=== PATIENT | male | born 1995 | race Caucasian/White ===

== ENCOUNTER → 2020-05-01 15:16 | Outpatient (BNVA) | payer MEDICAID, SELFPAY | PROVIDERS: Family Provider Family Medicine; PCP Family Medicine; Visit Provider Family Medicine | DX: R00.0 Tachycardia, unspecified (principal); R07.9 Chest pain, unspecified; I10 Essential (primary) hypertension | CPT/HCPCS: 80053; 83735; 84443; 85025 ==

== ENCOUNTER → 2020-06-03 10:00 | Outpatient (BNVA) | payer MEDICAID, SELFPAY | PROVIDERS: Family Provider Family Medicine; PCP Family Medicine; Visit Provider Internal Medicine Cardiovascular Disease | DX: R00.2 Palpitations (principal) | CPT/HCPCS: 80053; 83735; 84443 ==

== ENCOUNTER → 2020-07-04 10:28 | Outpatient (BNVA) | payer MEDICAID, SELFPAY | PROVIDERS: Family Provider Family Medicine; PCP Family Medicine; Visit Provider Registered Nurse | DX: Z79.899 Other long term (current) drug therapy (principal); F25.1 Schizoaffective disorder, depressive type | CPT/HCPCS: 85007; 85027 ==

== ENCOUNTER → 2020-07-10 15:02 | Outpatient (BNVA) | payer MEDICAID, SELFPAY | PROVIDERS: Family Provider Family Medicine; PCP Family Medicine; Visit Provider Registered Nurse | DX: F25.1 Schizoaffective disorder, depressive type (principal); Z79.899 Other long term (current) drug therapy | CPT/HCPCS: 85007; 85027 ==

== ENCOUNTER → 2020-07-18 13:52 | Outpatient (BNVA) | payer MEDICAID, SELFPAY | PROVIDERS: Family Provider Family Medicine; PCP Family Medicine; Visit Provider Psychiatry & Neurology Psychiatry | DX: F25.1 Schizoaffective disorder, depressive type (principal); Z79.899 Other long term (current) drug therapy | CPT/HCPCS: 85007; 85027; 99214 ==

== ENCOUNTER → 2020-07-29 10:12 | Outpatient (BNVA) | payer MEDICAID, SELFPAY | PROVIDERS: Family Provider Family Medicine; PCP Family Medicine; Visit Provider Registered Nurse | DX: Z79.899 Other long term (current) drug therapy (principal) | CPT/HCPCS: 85007; 85027 ==

== ENCOUNTER → 2020-08-16 09:16 | Outpatient (BNVA) | payer MEDICAID, SELFPAY | PROVIDERS: Family Provider Family Medicine; PCP Family Medicine; Referring Provider Registered Nurse; Visit Provider Registered Nurse | DX: F25.1 Schizoaffective disorder, depressive type (principal) | CPT/HCPCS: 36415; 85025 ==

== ENCOUNTER → 2020-08-26 14:48 | Outpatient (BNVA) | payer MEDICAID, SELFPAY | PROVIDERS: Family Provider Family Medicine; PCP Family Medicine; Visit Provider Registered Nurse | DX: F25.1 Schizoaffective disorder, depressive type (principal) | CPT/HCPCS: 85025 ==

== ENCOUNTER → 2020-09-02 11:18 | Outpatient (BNVA) | payer MEDICAID, SELFPAY | PROVIDERS: Family Provider Family Medicine; PCP Family Medicine; Visit Provider Registered Nurse | DX: F25.1 Schizoaffective disorder, depressive type (principal); Z79.899 Other long term (current) drug therapy | CPT/HCPCS: 36415; 85025 ==

== ENCOUNTER → 2020-09-09 14:03 | Outpatient (BNVA) | payer MEDICAID, SELFPAY | PROVIDERS: Family Provider Family Medicine; PCP Family Medicine; Visit Provider Registered Nurse | DX: F25.1 Schizoaffective disorder, depressive type (principal); Z79.899 Other long term (current) drug therapy | CPT/HCPCS: 85025 ==

== ENCOUNTER → 2020-09-16 13:08 | Outpatient (BNVA) | payer MEDICAID, SELFPAY | PROVIDERS: Family Provider Family Medicine; PCP Family Medicine; Visit Provider Registered Nurse | DX: F25.1 Schizoaffective disorder, depressive type (principal); I10 Essential (primary) hypertension; R00.2 Palpitations | CPT/HCPCS: 85025 ==

== ENCOUNTER → 2020-09-23 15:09 | Outpatient (BNVA) | payer MEDICAID, SELFPAY | PROVIDERS: Family Provider Family Medicine; PCP Family Medicine; Visit Provider Registered Nurse | DX: Z79.899 Other long term (current) drug therapy (principal) | CPT/HCPCS: 36415; 85025 ==

== ENCOUNTER → 2020-09-30 10:14 | Outpatient (BNVA) | payer MEDICAID, SELFPAY | PROVIDERS: Family Provider Family Medicine; PCP Family Medicine; Referring Provider Registered Nurse; Visit Provider Registered Nurse | DX: F25.1 Schizoaffective disorder, depressive type (principal) | CPT/HCPCS: 85025 ==

== ENCOUNTER → 2020-10-07 15:27 | Outpatient (BNVA) | payer MEDICAID, SELFPAY | PROVIDERS: Family Provider Family Medicine; PCP Family Medicine; Visit Provider Registered Nurse | DX: F25.1 Schizoaffective disorder, depressive type (principal) | CPT/HCPCS: 36415; 85025 ==

== ENCOUNTER → 2020-10-14 10:24 | Outpatient (BNVA) | payer MEDICAID, SELFPAY | PROVIDERS: Family Provider Family Medicine; PCP Family Medicine; Visit Provider Family Medicine | DX: I10 Essential (primary) hypertension (principal); M25.569 Pain in unspecified knee; Z79.899 Other long term (current) drug therapy; F25.1 Schizoaffective disorder, depressive type; M25.561 Pain in right knee; M25.562 Pain in left knee; G89.29 Other chronic pain; R00.2 Palpitations; Z13.220 Encounter for screening for lipoid disorders; Z13.6 Encounter for screening for cardiovascular disorders | CPT/HCPCS: 80053; 80061; 85025 ==

== ENCOUNTER → 2020-11-11 11:13 | Outpatient (BNVA) | payer MEDICAID, SELFPAY | PROVIDERS: Family Provider Family Medicine; PCP Family Medicine; Referring Provider Registered Nurse; Visit Provider Registered Nurse | DX: F25.1 Schizoaffective disorder, depressive type (principal); I10 Essential (primary) hypertension; Z79.899 Other long term (current) drug therapy | CPT/HCPCS: 36415; 85025 ==

== ENCOUNTER → 2020-11-25 10:16 | Outpatient (BNVA) | payer MEDICAID, SELFPAY | PROVIDERS: Family Provider Family Medicine; PCP Family Medicine; Referring Provider Registered Nurse; Visit Provider Registered Nurse | DX: F25.1 Schizoaffective disorder, depressive type (principal); I10 Essential (primary) hypertension; Z79.899 Other long term (current) drug therapy; R00.2 Palpitations | CPT/HCPCS: 85025 ==

== ENCOUNTER → 2020-12-02 13:42 | Outpatient (BNVA) | payer MEDICAID, SELFPAY | PROVIDERS: Family Provider Family Medicine; PCP Family Medicine; Referring Provider Registered Nurse; Visit Provider Registered Nurse | DX: F25.1 Schizoaffective disorder, depressive type (principal); Z79.899 Other long term (current) drug therapy | CPT/HCPCS: 85025 ==

== ENCOUNTER → 2020-12-09 10:20 | Outpatient (BNVA) | payer MEDICAID, SELFPAY | PROVIDERS: Family Provider Family Medicine; PCP Family Medicine; Referring Provider Registered Nurse; Visit Provider Registered Nurse | DX: F25.1 Schizoaffective disorder, depressive type (principal); Z79.899 Other long term (current) drug therapy | CPT/HCPCS: 36415; 85025 ==

== ENCOUNTER → 2020-12-31 12:44 | Outpatient (BNVA) | payer MEDICAID, SELFPAY | PROVIDERS: Family Provider Family Medicine; PCP Family Medicine; Referring Provider Registered Nurse; Visit Provider Registered Nurse | DX: Z79.899 Other long term (current) drug therapy (principal); F25.1 Schizoaffective disorder, depressive type | CPT/HCPCS: 36415; 85025 ==

== ENCOUNTER → 2021-01-06 10:42 | Outpatient (BNVA) | payer MEDICAID, SELFPAY | PROVIDERS: Family Provider Family Medicine; PCP Family Medicine; Referring Provider Registered Nurse; Visit Provider Registered Nurse | DX: Z79.899 Other long term (current) drug therapy (principal); I10 Essential (primary) hypertension; F25.1 Schizoaffective disorder, depressive type | CPT/HCPCS: 36415; 85025 ==

== ENCOUNTER → 2021-01-13 13:48 | Outpatient (BNVA) | payer MEDICAID, SELFPAY | PROVIDERS: Family Provider Family Medicine; PCP Family Medicine; Visit Provider Registered Nurse | DX: Z03.89 Encounter for observation for other suspected diseases and conditions ruled out (principal) | CPT/HCPCS: 36415; 85025 ==

== ENCOUNTER → 2021-01-29 10:18 | Outpatient (BNVA) | payer MEDICAID, SELFPAY | PROVIDERS: Family Provider Family Medicine; PCP Family Medicine; Visit Provider Registered Nurse | DX: F25.1 Schizoaffective disorder, depressive type (principal); Z79.899 Other long term (current) drug therapy | CPT/HCPCS: 36415; 85025 ==

== ENCOUNTER → 2021-02-06 14:57 | Outpatient (BNVA) | payer MEDICAID, SELFPAY | PROVIDERS: Family Provider Family Medicine; PCP Family Medicine; Visit Provider Registered Nurse | DX: Z03.89 Encounter for observation for other suspected diseases and conditions ruled out (principal); I10 Essential (primary) hypertension; K21.9 Gastro-esophageal reflux disease without esophagitis | CPT/HCPCS: 82306; 82607; 82746; 83540 ==

== ENCOUNTER → 2021-02-19 11:03 | Outpatient (BNVA) | payer MEDICAID, SELFPAY | PROVIDERS: Family Provider Family Medicine; PCP Family Medicine; Visit Provider Registered Nurse | DX: Z79.899 Other long term (current) drug therapy (principal) | CPT/HCPCS: 36415; 85025 ==

== ENCOUNTER → 2021-02-24 13:25 | Outpatient (BNVA) | payer MEDICAID, SELFPAY | PROVIDERS: Family Provider Family Medicine; PCP Family Medicine; Referring Provider Registered Nurse; Visit Provider Registered Nurse | DX: Z79.899 Other long term (current) drug therapy (principal) | CPT/HCPCS: 36415; 85025 ==

== ENCOUNTER → 2021-03-03 10:33 | Outpatient (BNVA) | payer MEDICAID, SELFPAY | PROVIDERS: Family Provider Family Medicine; PCP Family Medicine; Referring Provider Registered Nurse; Visit Provider Registered Nurse | DX: Z79.899 Other long term (current) drug therapy (principal) | CPT/HCPCS: 36415; 85025 ==

== ENCOUNTER → 2021-04-02 12:01 | Outpatient (BNVA) | payer MEDICAID, SELFPAY | PROVIDERS: Family Provider Family Medicine; PCP Family Medicine; Visit Provider Registered Nurse | DX: Z79.899 Other long term (current) drug therapy (principal) | CPT/HCPCS: 36415; 85025 ==

== ENCOUNTER → 2021-04-17 11:20 | Outpatient (BNVA) | payer MEDICAID, SELFPAY | PROVIDERS: Family Provider Family Medicine; PCP Family Medicine; Referring Provider Registered Nurse; Visit Provider Registered Nurse | DX: F25.1 Schizoaffective disorder, depressive type (principal); Z79.899 Other long term (current) drug therapy | CPT/HCPCS: 36415; 85025 ==

== ENCOUNTER → 2021-04-21 16:31 | Outpatient (BNVA) | payer MEDICAID, SELFPAY | PROVIDERS: Family Provider Family Medicine; PCP Family Medicine; Visit Provider Family Medicine | DX: F25.1 Schizoaffective disorder, depressive type (principal); K04.7 Periapical abscess without sinus; R35.0 Frequency of micturition; D72.825 Bandemia; K59.00 Constipation, unspecified; Z79.899 Other long term (current) drug therapy | CPT/HCPCS: 81000; 85025 ==

== ENCOUNTER → 2021-05-16 11:25 | Outpatient (BNVA) | payer MEDICAID, SELFPAY | PROVIDERS: Family Provider Family Medicine; PCP Family Medicine; Referring Provider Registered Nurse; Visit Provider Registered Nurse | DX: F25.1 Schizoaffective disorder, depressive type (principal); Z79.899 Other long term (current) drug therapy | CPT/HCPCS: 85025 ==

== ENCOUNTER → 2021-06-19 12:04 | Outpatient (BNVA) | payer MEDICAID, SELFPAY | PROVIDERS: Family Provider Family Medicine; PCP Family Medicine; Visit Provider Orthopaedic Surgery Sports Medicine | DX: Z79.899 Other long term (current) drug therapy (principal) | CPT/HCPCS: 36415; 85025 ==

== ENCOUNTER → 2021-06-25 12:01 | Outpatient (BNVA) | payer MEDICAID, SELFPAY | PROVIDERS: Family Provider Family Medicine; PCP Family Medicine; Visit Provider Registered Nurse | DX: Z79.899 Other long term (current) drug therapy (principal) | CPT/HCPCS: 36415 ==

== ENCOUNTER → 2021-07-16 13:45 | Outpatient (BNVA) | payer MEDICAID, SELFPAY | PROVIDERS: Family Provider Family Medicine; PCP Family Medicine; Visit Provider Registered Nurse | DX: Z79.899 Other long term (current) drug therapy (principal) | CPT/HCPCS: 36415; 80053; 80061; 85025 ==

== ENCOUNTER → 2021-08-13 13:05 | Outpatient (BNVA) | payer MEDICAID, SELFPAY | PROVIDERS: Family Provider Family Medicine; PCP Family Medicine; Visit Provider Registered Nurse | DX: Z79.899 Other long term (current) drug therapy (principal) | CPT/HCPCS: 36415; 85025 ==

== ENCOUNTER → 2021-09-17 14:56 | Outpatient (BNVA) | payer MEDICAID, SELFPAY | PROVIDERS: Family Provider Family Medicine; PCP Family Medicine; Visit Provider Registered Nurse | DX: Z79.899 Other long term (current) drug therapy (principal) | CPT/HCPCS: 36415; 85025 ==

== ENCOUNTER → 2021-10-13 15:15 | Outpatient (BNVA) | payer MEDICAID, SELFPAY | PROVIDERS: Family Provider Family Medicine; PCP Family Medicine; Visit Provider Registered Nurse | DX: Z79.899 Other long term (current) drug therapy (principal) | CPT/HCPCS: 36415; 85025 ==

== ENCOUNTER → 2021-11-10 14:47 | Outpatient (BNVA) | payer MEDICAID, SELFPAY | PROVIDERS: Family Provider Family Medicine; PCP Family Medicine; Visit Provider Registered Nurse | DX: Z79.899 Other long term (current) drug therapy (principal) | CPT/HCPCS: 85025 ==

== ENCOUNTER → 2021-12-18 11:28 | Outpatient (BNVA) | payer MEDICAID, SELFPAY | PROVIDERS: Family Provider Family Medicine; PCP Family Medicine; Visit Provider Registered Nurse | DX: Z79.899 Other long term (current) drug therapy (principal) | CPT/HCPCS: 85025 ==

== ENCOUNTER → 2022-01-05 15:15 | Outpatient (BNVA) | payer MEDICAID, SELFPAY | PROVIDERS: Family Provider Family Medicine; PCP Family Medicine; Visit Provider Registered Nurse | DX: Z79.899 Other long term (current) drug therapy (principal) | CPT/HCPCS: 85025 ==

== ENCOUNTER → 2022-02-02 14:19 | Outpatient (BNVA) | payer MEDICAID, SELFPAY | PROVIDERS: Family Provider Family Medicine; PCP Family Medicine; Visit Provider Registered Nurse | DX: Z79.899 Other long term (current) drug therapy (principal) | CPT/HCPCS: 80053; 80061; 82306; 83036; 84443; 85025 ==

== ENCOUNTER → 2022-03-23 10:48 | Outpatient (BNVA) | payer MEDICAID, SELFPAY | PROVIDERS: Family Provider Family Medicine; PCP Family Medicine; Visit Provider Registered Nurse | DX: Z79.899 Other long term (current) drug therapy (principal) | CPT/HCPCS: 85025 ==

== ENCOUNTER → 2022-05-21 12:30 | Outpatient (BNVA) | payer MEDICAID, SELFPAY | PROVIDERS: Family Provider Family Medicine; PCP Family Medicine; Visit Provider Registered Nurse | DX: Z79.899 Other long term (current) drug therapy (principal) | CPT/HCPCS: 85025 ==

== ENCOUNTER → 2022-07-08 13:27 | Outpatient (BNVA) | payer MEDICAID, SELFPAY | PROVIDERS: Family Provider Family Medicine; PCP Family Medicine; Visit Provider Registered Nurse | DX: Z79.899 Other long term (current) drug therapy (principal) | CPT/HCPCS: 85025 ==

== ENCOUNTER → 2022-08-05 14:11 | Outpatient (BNVA) | payer MEDICAID, SELFPAY | PROVIDERS: Family Provider Family Medicine; PCP Family Medicine; Visit Provider Registered Nurse | DX: F25.1 Schizoaffective disorder, depressive type (principal) | CPT/HCPCS: 85025 ==

== ENCOUNTER → 2022-09-02 14:08 | Outpatient (BNVA) | payer MEDICAID, SELFPAY | PROVIDERS: Family Provider Family Medicine; PCP Family Medicine; Visit Provider Registered Nurse | DX: Z79.899 Other long term (current) drug therapy (principal) | CPT/HCPCS: 80048; 85025 ==

== ENCOUNTER → 2022-10-15 15:04 | Outpatient (BNVA) | payer MEDICAID, SELFPAY | PROVIDERS: Family Provider Family Medicine; PCP Family Medicine; Visit Provider Registered Nurse | DX: Z79.899 Other long term (current) drug therapy (principal) | CPT/HCPCS: 85025 ==

== ENCOUNTER → 2022-11-12 13:58 | Outpatient (BNVA) | payer MEDICAID, SELFPAY | PROVIDERS: Family Provider Family Medicine; PCP Family Medicine; Visit Provider Registered Nurse | DX: Z79.899 Other long term (current) drug therapy (principal) | CPT/HCPCS: 85025 ==

== ENCOUNTER → 2022-12-31 09:18 | Outpatient (BNVA) | payer MEDICAID, SELFPAY | PROVIDERS: Family Provider Family Medicine; PCP Family Medicine; Visit Provider Registered Nurse | DX: Z79.899 Other long term (current) drug therapy (principal) | CPT/HCPCS: 80053; 80061; 82306; 83036; 85025 ==

== ENCOUNTER 2023-03-23 11:44 | Emergency (ER) | payer MEDICAID, SELFPAY ==
[2023-03-23 12:30] VITALS: BP 130/86; PULSE 78; RESP 18; TEMP 36.6; O2SAT 93
--- NOTE | 2023-03-23 12:32 | ED_ITS ---
HPI - Dental/Oral General: Chief complaint: Skin/Abscess/Foreign Body Stated complaint: tooth abscess Time Seen by Provider: 03/23/23 12:16 Source: patient Mode of arrival: ambulatory Limitations: no limitations History of Present Illness: Patient is a 27-year-old male who presents to ED today with a complaint of right-sided facial swelling and dental pain over the past several weeks. Patient states he has been on multiple rounds of antibiotics and nothing seems to be helping with his facial swelling. He has called multiple dentists none of which are able to see him for several months. Patient is able to eat, drink, swallow secretions, and open his mouth normally. Onset (ago): week(s) Duration: constant Severity: moderate Relieving factors: nothing Exacerbating factors: nothing Context: poor dental care Associated symptoms: Reports other (Facial swelling); Denies ear or mastoid pain, fever(s) or odynophagia Treatment prior to arrival: other (Multiple rounds of antibiotics) Review of Systems Const: Denies: fever(s), chills, body aches, fatigue or malaise ENMT: Reports: dental pain and sinus pain (Right-sided facial swelling); Denies: throat pain, odynophagia, swelling of lips/tongue, ear or mastoid pain, nasal discharge, nasal congestion or post nasal drip Card: Denies: chest pain Resp: Denies: dyspnea Musc: Denies: neck pain Skin/Breast: Denies: rash Neuro: Denies: headache(s) or dizziness PFS ED PFSH: Medical History Generalized anxiety disorder GERD (gastroesophageal reflux disease) Hypertension Psychiatric care Schizoaffective disorder, depressive type Family History Other CAD (coronary artery disease) Myocardial infarction Social History Smoking and tobacco status: never smoked Alcohol intake: never Substance/Drug Use: never Physical Exam Const: COMMON NORMALS: no acute distress, average body habitus, patient orie nted x3, no limitations, alert and well nourished GENERAL APPEARANCE: patient experience coordinator perative ORIENTATION/CONSCIOUSNESS: Yes awake, Yes oriented to person, Yes oriented to place and Yes oriented to time HENMT: COMMON NORMALS: normocephalic and atraumatic HEAD & SCALP: normal to inspection, normocephalic and atraumatic FACE & SINUS: sinuses nontender FACE & SINUS IMAGES: 1. Facial swelling consistent with dental abscess; there is no swelling below mandible or into his neck; no submental swelling MOUTH: Normal oral and palatal mucosa present, lip normal, tongue normal and other (Floor of mouth is soft and nonelevated; no trismus) TEETH & GINGIVA: Yes caries, Yes poor dentition and Yes other (Significant widespread periodontal disease) THROAT: posterior oropharynx normal, tonsils normal and uvula midline Neck/C-Spine: COMMON NORMALS: full ROM, no lymphadenopathy and no meningeal signs GENERAL: Yes normal visual inspection, No anterior neck swelling and No submandibular swelling Neuro: COMMON NORMALS: patient oriented x3 SENSORIUM/ORIENTATION: Yes alert, Yes oriented to person, Yes oriented to place and Yes oriented to time MENINGEAL SIGNS: Yes no meningeal signs Course Consultations: Consultation #1: Dr. Mahoney-recommending contacting [facility] in [place] or [place]; mentioned a [facility] through [employer] that potentially could see patient Consultation #2: [facility]-stated they would call patient today and set him up with an appointment for treatment/drainage Vital Signs: Vital signs: Vital Signs Temperature 97.9 F 03/23/23 12:30 Pulse Rate 78 03/23/23 12:30 Respiratory Rate 18 03/23/23 12:30 Blood Pressure 130/86 03/23/23 12:30 Pulse Oximetry 93 03/23/23 12:30 Oxygen Delivery Me thod Room Air 03/23/23 12:30 MDM - Dental/Oral Medical Decision Making Patient here with a dental abscess. I contacted [facility] who is willing to see ross joyner. They will contact him later today for appointment date and time. Return to ED precautions given if for what ever reason he is not able to follow-up with them. Will continue him on oral antibiotics until this appointment. Lab Data 03/23/23 12:47 03/23/23 12:[address] 03/23/23 12:32 IMPRESSION: 1. Subperiosteal abscess measures 2.6 x 0.8 cm on the medial RIGHT mandibular body. There is an additional contiguous, acute inflammatory collection extending inferior and lateral to the RIGHT mandibular body measuring 1.3 x 2.0 cm. 2. No bone destruction or osteomyelitis. 3. Extensive bilateral dental caries. Laboratory Results WBC 6.3 10^3/uL (4.0-10.0) 03/23/23 12:47 RBC 4.66 10^6/uL (4.1-5.3) 03/23/23 12:47 Hgb 13.9 g/dL (11.7-16.6) 03/23/23 12:47 Hct 41.1 % (42.0-52.0) L 03/23/23 12:47 MCV 88.2 fl (80-94) 03/23/23 12:47 MCH 29.8 pg (28.0-34.0) 03/23/23 12:47 MCHC 33.8 g/dL (30.0-36.0) 03/23/23 12:47 RDW 12.0 % (12.1-15.1) L 03/23/23 12:47 Plt Count 181 10^3/cmm (130-400) 03/23/23 12:47 MPV 10.2 fL (7.4-10.4) 03/23/23 12:47 Neut % (Auto) 67.1 % 03/23/23 12:47 Lymph % (Auto) 19.6 % 03/23/23 12:47 [place] % (Auto) 9.1 % 03/23/23 12:47 Eos % (Auto) 3.4 % 03/23/23 12:47 Baso % (Auto) 0.6 % 03/23/23 12:47 Neut # (Auto) 4.20 10^3/uL (1.8-7.7) 03/23/23 12:47 Lymph # (Auto) 1.2 10^3/uL (0.8-4.8) 03/23/23 12:47 [place] # (Auto) 0.6 10^3/uL (0.2-0.9) 03/23/23 12:47 Eos # (Auto) 0.2 10^3/uL (0.0-0.8) 03/23/23 12:47 Baso # (Auto) 0.0 10^3/uL (0.0-0.1) 03/23/23 12:47 Nucleated RBC % (auto) 0 % 03/23/23 12:47 Nucleated RBCs # 0.0 /100WBC 03/23/23 12:47 Sodium 138 mmol/L (136-145) 03/23/23 12:47 Potassium 3.8 mmol/L (3.5-5.1) 03/23/23 12:47 Chloride 103 mmol/L (98-107) 03/23/23 12:47 Carbon Dioxide 25 mmol/L (22-29) 03/23/23 12:47 Anion Gap 13.8 (5-19) 03/23/23 12:47 BUN 8 mg/dL (6-20) 03/23/23 12:47 Creatinine 1.0 mg/dL (0.7-1.2) 03/23/23 12:47 GFR Calculation 89.6 mL/min (90-130) L 03/23/23 12:47 Glucose 101 mg/dL (65-115) 03/23/23 12:47 Calculated Osmolality 284 mOsm/kg (285-295) L 03/23/23 12:47 Calcium 9.2 mg/dL (8.5-10.5) 03/23/23 12:47 Total Bilirubin 0.5 mg/dL (0.15-1.2) 03/23/23 12:47 AST 24 U/L (0-40) 03/23/23 12:47 ALT 29 U/L (0-41) 03/23/23 12:47 Alkaline Phosphatase 107 U/L (40-130) 03/23/23 12:47 Total Protein 7.0 g/dL (6.6-8.7) 03/23/23 12:47 Albumin 4.3 g/dL (3.5-5.2) 03/23/23 12:47 Globulin 2.7 g/dL (1.3-4.6) 03/23/23 12:47 Discharge Plan Discharge Patient Disposition: Home Clinical Impression: Dental abscess Condition: Stable Prescriptions: Continued amoxicillin-pot clavulanate 875-125 mg tablet 1 tab PO Q12H 7 Days Qty: 20 0RF No Action omega-3 fatty acids [Fish Oil Concentrate] 1,000 mg capsule 1,000 mg PO DAILY 30 Days Qty: 30 5RF Rx Instructions: with food cholecalciferol (vitamin D3) [D3-50 Cholecalciferol] 1,250 mcg (50,000 unit) capsule 1,250 mcg PO .weekly 90 Days Qty: 13 1RF fluoxetine 40 mg capsule 80 mg PO DAILY Qty: 60 2RF clozapine 100 mg tablet 300 mg PO .at bedtime 28 Days Qty: 84 3RF omeprazole 20 mg capsule,delayed release(DR/EC) 20 mg PO DAILY 90 Days Qty: 90 1RF metoprolol tartrate 100 mg tablet 100 mg PO BID 90 Days Qty: 180 1RF meloxicam 15 mg tablet 15 mg PO DAILY PRN (Reason: pain) 90 Days Qty: 90 1RF Rx Instructions: WITH FOOD cetirizine [Zyrtec] 10 mg tablet 10 mg PO DAILY 90 Days Qty: 90 1RF Rx Instructions: 340B Discharge Orders: Discharge ED (Routine); Ordered 03/23/23 Ordered By: Antonia Carlos Referrals: Blanca Armendariz MD [Primary Care Provider] - Patient Instructions: Dental Abscess (ED) Activity Restrictions/Additional Instructions: As we discussed OMFS (oral maxillary facial surgery) Frank should be contacting you today or tomorrow to set you up with an appointment date and time to be seen for drainage abscess. Please bring your CT disc and report with you to this appointment. If for what ever reason you are not able to follow-up with them and abscess continues to worsen and you are not able to see a dentist or other specialty for drainage you may return to the emergency department. You need to return to the emergency department sooner for any difficulty swallowing, breathing, controlling saliva, opening your mouth, fevers, or any other concerns you may have. I hope you begin to feel better soon. Coding Level of Care Code ED Sales Agent for Marlin Mena
--- NOTE | 2023-03-23 12:32 | CT_ITS ---
WS: [id number] CT FACIAL BONES with contrast. HISTORY: R sided facial swelling TECHNIQUE: Images obtained from the supraorbital location through the mandible. Soft tissue and bone windows are reviewed. Coronal and sagittal reformats have also been submitted. DLP: 669.[address] scans at [facility] use at least one of these dose optimization techniques: automated e xposure control; mA and/or kV adjustment per patient size (includes targeted exams where dose is matc hed to clinical indication); or iterative reconstruction. Contrast: Omnipaque 350; 100 mL IV. COMPARISON: None available. Focal soft tissue thickening and enhancement centered around the RIGHT mandibular body. Subperiosteal abscess measures 2.6 x 0.8 cm along the medial mandibular body. There is a additional inflammatory c omponent with enhancement extending inferior lateral to the mandibular body measuring 1.3 x 2.0 cm. T here is adjacent dental caries involving several of the molars both the RIGHT and LEFT mandible. No d estructive lesion within the bone. Marked induration in the periventricular soft tissue fat with a few adjacent hyperemic lymph nodes. Globes are negative. No significant sinus disease or air-fluid levels. Small mucoperiosteal cysts in the maxillary sinuses. CT/CT facial bones w con [id number] IMPRESSION: 1. Subperiosteal abscess measures 2.6 x 0.8 cm on the medial RIGHT mandibular body. There is an additional contiguous, acute inflammatory collection extendin g inferior and lateral to the RIGHT mandibular body measuring 1.3 x 2.0 cm. 2. No bone destruction or osteomyelitis. 3. Extensive bilateral dental caries.
[2023-03-23 12:56] LABS: Basophils % 0.6 %; Eosinophils # 0.2 10^3/uL (0.0-0.8); Eosinophils % 3.4 %; Hematocrit 41.1 % (42.0-52.0); Hemoglobin 13.9 g/dL (11.7-16.6); Lymphocytes # 1.2 10^3/uL (0.8-4.8); Lymphocytes % 19.6 %; Mean Corpuscular HGB Conc 33.8 g/dL (30.0-36.0); Mean Corpuscular Hemoglobin 29.8 pg (28.0-34.0); Mean Corpuscular Volume 88.2 fl (80-94); Mean Platelet Volume 10.2 fL (7.4-10.4); Monocytes # 0.6 10^3/uL (0.2-0.9); Monocytes % 9.1 %; Neutrophils % 67.1 %; Nucleated Red Blood Cells % 0 %; Platelet Count 181 10^3/cmm (130-400); Red Blood Count 4.66 10^6/uL (4.1-5.3); White Blood Count 6.3 10^3/uL (4.0-10.0)
[2023-03-23] MEDS: iohexol 350 mg/mL 500 mL Btl (per mL) IV (13:06)
[2023-03-23 13:18] LABS: Alanine Aminotransferase 29 U/L (0-41); Albumin Level 4.3 g/dL (3.5-5.2); Alkaline Phosphatase 107 U/L (40-130); Anion Gap 13.8 (5-19); Aspartate Amino Transferase 24 U/L (0-40); Blood Urea Nitrogen 8 mg/dL (6-20); Calcium 9.2 mg/dL (8.5-10.5); Carbon Dioxide 25 mmol/L (22-29); Chloride 103 mmol/L (98-107); Globulin 2.7 g/dL (1.3-4.6); Glomerular Filtration Rate 89.6 mL/min (90-130); Glucose 101 mg/dL (65-115); Osmolality Calculated 284 mOsm/kg (285-295); Potassium 3.8 mmol/L (3.5-5.1); Sodium 138 mmol/L (136-145); Total Bilirubin 0.5 mg/dL (0.15-1.2)
== END 2023-03-23 15:09 | disposition home or self-care (01) ==
PROVIDERS: Emergency Provider Physician Assistant; PCP Family Medicine
DX: K04.7 Periapical abscess without sinus (principal); I10 Essential (primary) hypertension
CPT/HCPCS: 70487; 80053; 85025; 99285; Q9967

== ENCOUNTER → 2023-04-23 09:09 | Outpatient (BNVA) | payer MEDICAID, SELFPAY | PROVIDERS: PCP Family Medicine; Visit Provider Registered Nurse | DX: F25.1 Schizoaffective disorder, depressive type (principal); F41.1 Generalized anxiety disorder | CPT/HCPCS: 85025 ==

== ENCOUNTER → 2023-05-21 12:17 | Outpatient (BNVA) | payer MEDICAID, SELFPAY | PROVIDERS: PCP Family Medicine; Visit Provider Registered Nurse | DX: Z79.899 Other long term (current) drug therapy (principal) | CPT/HCPCS: 85025 ==

== ENCOUNTER → 2023-06-24 14:56 | Outpatient (BNVA) | payer MEDICAID, SELFPAY | PROVIDERS: PCP Family Medicine; Visit Provider Registered Nurse | DX: Z79.899 Other long term (current) drug therapy (principal) | CPT/HCPCS: 85025 ==

== ENCOUNTER → 2023-07-22 13:06 | Outpatient (BNVA) | payer MEDICAID, SELFPAY | PROVIDERS: PCP Family Medicine; Visit Provider Registered Nurse | DX: F25.1 Schizoaffective disorder, depressive type (principal) | CPT/HCPCS: 85025 ==

== ENCOUNTER → 2023-08-31 11:56 | Outpatient (BNVA) | payer MEDICAID, SELFPAY | PROVIDERS: PCP Family Medicine; Visit Provider Registered Nurse | DX: Z79.899 Other long term (current) drug therapy (principal) | CPT/HCPCS: 85025 ==

== ENCOUNTER → 2023-09-28 15:27 | Outpatient (BNVA) | payer MEDICAID, SELFPAY | PROVIDERS: PCP Family Medicine; Visit Provider Psychiatry & Neurology Psychiatry | DX: F25.1 Schizoaffective disorder, depressive type (principal) | CPT/HCPCS: 85025 ==

== ENCOUNTER → 2023-10-27 12:59 | Outpatient (BNVA) | payer MEDICAID, SELFPAY | PROVIDERS: PCP Family Medicine; Visit Provider Psychiatry & Neurology Psychiatry | DX: Z79.899 Other long term (current) drug therapy (principal); F25.1 Schizoaffective disorder, depressive type; F40.10 Social phobia, unspecified; R41.9 Unspecified symptoms and signs involving cognitive functions and awareness; Z91.148 Patient's other noncompliance with medication regimen for other reason; F41.1 Generalized anxiety disorder | CPT/HCPCS: 85025 ==

== ENCOUNTER → 2023-12-02 13:10 | Outpatient (BNVA) | payer MEDICAID, SELFPAY ==
[2023-11-02 15:31] VITALS: BP 137/87; BMI 33.5
== END ==
PROVIDERS: PCP Family Medicine; Visit Provider Psychiatry & Neurology Psychiatry
DX: F25.1 Schizoaffective disorder, depressive type (principal); Z79.899 Other long term (current) drug therapy; F40.10 Social phobia, unspecified; R41.9 Unspecified symptoms and signs involving cognitive functions and awareness; Z91.148 Patient's other noncompliance with medication regimen for other reason; F41.1 Generalized anxiety disorder
CPT/HCPCS: 85025

== ENCOUNTER → 2023-12-30 12:04 | Outpatient (BNVA) | payer MEDICAID, SELFPAY ==
[2023-11-02 15:31] VITALS: BP 137/87; BMI 33.5
== END ==
PROVIDERS: PCP Family Medicine; Visit Provider Psychiatry & Neurology Psychiatry
DX: Z79.899 Other long term (current) drug therapy (principal)
CPT/HCPCS: 85025

== ENCOUNTER → 2024-01-31 10:45 | Outpatient (BNVA) | payer MEDICAID, SELFPAY ==
[2023-11-02 15:31] VITALS: BP 137/87; BMI 33.5
== END ==
PROVIDERS: PCP Family Medicine; Referring Provider Psychiatry & Neurology Psychiatry; Visit Provider Psychiatry & Neurology Psychiatry
DX: Z79.899 Other long term (current) drug therapy (principal)
CPT/HCPCS: 85025

== ENCOUNTER → 2024-02-28 12:58 | Outpatient (BNVA) | payer MEDICAID, SELFPAY ==
[2023-11-02 15:31] VITALS: BP 137/87; BMI 33.5
== END ==
PROVIDERS: PCP Family Medicine; Referring Provider Psychiatry & Neurology Psychiatry; Visit Provider Psychiatry & Neurology Psychiatry
DX: Z79.899 Other long term (current) drug therapy (principal); Z51.81 Encounter for therapeutic drug level monitoring; F25.1 Schizoaffective disorder, depressive type; I10 Essential (primary) hypertension; Z13.1 Encounter for screening for diabetes mellitus; Z13.220 Encounter for screening for lipoid disorders; Z13.6 Encounter for screening for cardiovascular disorders
CPT/HCPCS: 80053; 80061; 83036; 84443; 85025

== ENCOUNTER → 2024-03-31 08:41 | Outpatient (BNVA) | payer MEDICAID, SELFPAY ==
[2024-03-01 11:04] VITALS: BP 125/80; BMI 31.1
== END ==
PROVIDERS: PCP Family Medicine; Referring Provider Psychiatry & Neurology Psychiatry; Visit Provider Psychiatry & Neurology Psychiatry
DX: Z79.899 Other long term (current) drug therapy (principal)
CPT/HCPCS: 85025

== ENCOUNTER → 2024-05-05 08:48 | Outpatient (BNVA) | payer MEDICAID, SELFPAY ==
[2024-03-01 11:04] VITALS: BP 125/80; BMI 31.1
== END ==
PROVIDERS: PCP Family Medicine; Visit Provider Psychiatry & Neurology Psychiatry
DX: Z79.899 Other long term (current) drug therapy (principal); F25.1 Schizoaffective disorder, depressive type; F40.10 Social phobia, unspecified; R41.9 Unspecified symptoms and signs involving cognitive functions and awareness; Z91.148 Patient's other noncompliance with medication regimen for other reason; F41.1 Generalized anxiety disorder
CPT/HCPCS: 85025

== ENCOUNTER → 2024-05-18 14:20 | Outpatient (BNVA) | payer MEDICAID, SELFPAY ==
[2024-03-01 11:04] VITALS: BP 125/80; BMI 31.1
== END ==
PROVIDERS: PCP Family Medicine; Referring Provider Psychiatry & Neurology Psychiatry; Visit Provider Psychiatry & Neurology Psychiatry
DX: Z79.899 Other long term (current) drug therapy (principal)
CPT/HCPCS: 85025

== ENCOUNTER → 2024-05-26 08:41 | Outpatient (BNVA) | payer MEDICAID, SELFPAY ==
[2024-03-01 11:04] VITALS: BP 125/80; BMI 31.1
== END ==
PROVIDERS: PCP Family Medicine; Visit Provider Psychiatry & Neurology Psychiatry
DX: Z79.899 Other long term (current) drug therapy (principal)
CPT/HCPCS: 85025

== ENCOUNTER → 2024-07-03 14:05 | Outpatient (BNVA) | payer OTHER, SELFPAY ==
[2024-03-01 11:04] VITALS: BP 125/80; BMI 31.1
== END ==
PROVIDERS: PCP Family Medicine; Referring Provider Psychiatry & Neurology Psychiatry; Visit Provider Psychiatry & Neurology Psychiatry
DX: Z79.899 Other long term (current) drug therapy (principal)
CPT/HCPCS: 85025

== ENCOUNTER → 2024-08-01 12:57 | Outpatient (BNVA) | payer MEDICAID, SELFPAY ==
[2024-03-01 11:04] VITALS: BP 125/80; BMI 31.1
== END ==
PROVIDERS: PCP Family Medicine; Visit Provider Psychiatry & Neurology Psychiatry
DX: Z79.899 Other long term (current) drug therapy (principal)
CPT/HCPCS: 85025

== ENCOUNTER → 2024-08-28 12:44 | Outpatient (BNVA) | payer MEDICAID, SELFPAY ==
[2024-03-01 11:04] VITALS: BP 125/80; BMI 31.1
== END ==
PROVIDERS: PCP Family Medicine; Referring Provider Psychiatry & Neurology Psychiatry; Visit Provider Psychiatry & Neurology Psychiatry
DX: Z79.899 Other long term (current) drug therapy (principal)
CPT/HCPCS: 85025

== ENCOUNTER → 2024-09-25 15:05 | Outpatient (BNVA) | payer MEDICAID, SELFPAY ==
[2024-03-01 11:04] VITALS: BP 125/80; BMI 31.1
== END ==
PROVIDERS: PCP Family Medicine; Visit Provider Psychiatry & Neurology Psychiatry
DX: Z79.899 Other long term (current) drug therapy (principal)
CPT/HCPCS: 85025

== ENCOUNTER → 2024-10-23 13:44 | Outpatient (BNVA) | payer MEDICAID, SELFPAY ==
[2024-03-01 11:04] VITALS: BP 125/80; BMI 31.1
== END ==
PROVIDERS: PCP Family Medicine; Referring Provider Psychiatry & Neurology Psychiatry; Visit Provider Psychiatry & Neurology Psychiatry
DX: Z79.899 Other long term (current) drug therapy (principal)
CPT/HCPCS: 85025

== ENCOUNTER → 2024-11-09 09:42 | Outpatient (BNVA) | payer OTHER, SELFPAY ==
[2024-03-01 11:04] VITALS: BP 125/80; BMI 31.1
== END ==
PROVIDERS: PCP Family Medicine; Referring Provider Psychiatry & Neurology Psychiatry; Visit Provider Psychiatry & Neurology Psychiatry
DX: Z79.899 Other long term (current) drug therapy (principal)
CPT/HCPCS: 85025

== ENCOUNTER → 2024-11-24 08:50 | Outpatient (BNVA) | payer MEDICAID, SELFPAY ==
[2024-03-01 11:04] VITALS: BP 125/80; BMI 31.1
== END ==
PROVIDERS: PCP Family Medicine; Referring Provider Psychiatry & Neurology Psychiatry; Visit Provider Psychiatry & Neurology Psychiatry
DX: Z79.899 Other long term (current) drug therapy (principal)
CPT/HCPCS: 85025

== ENCOUNTER → 2024-12-22 10:48 | Outpatient (BNVA) | payer OTHER, SELFPAY ==
[2024-03-01 11:04] VITALS: BP 125/80; BMI 31.1
== END ==
PROVIDERS: PCP Family Medicine; Visit Provider Psychiatry & Neurology Psychiatry
DX: Z79.899 Other long term (current) drug therapy (principal)
CPT/HCPCS: 85025

== ENCOUNTER → 2025-01-02 10:02 | Outpatient (BNVA) | payer MEDICAID, SELFPAY ==
[2024-03-01 11:04] VITALS: BP 125/80; BMI 31.1
== END ==
PROVIDERS: PCP Family Medicine; Referring Provider Psychiatry & Neurology Psychiatry; Visit Provider Psychiatry & Neurology Psychiatry
DX: Z79.899 Other long term (current) drug therapy (principal)
CPT/HCPCS: 85025

== ENCOUNTER → 2025-02-01 09:02 | Outpatient (BNVA) | payer MEDICAID, SELFPAY ==
[2024-03-01 11:04] VITALS: BP 125/80; BMI 31.1
== END ==
PROVIDERS: PCP Family Medicine; Visit Provider Psychiatry & Neurology Psychiatry
DX: Z79.899 Other long term (current) drug therapy (principal)
CPT/HCPCS: 85025

== ENCOUNTER → 2025-03-01 08:43 | Outpatient (BNVA) | payer MEDICAID, SELFPAY ==
[2024-03-01 11:04] VITALS: BP 125/80; BMI 31.1
== END ==
PROVIDERS: PCP Family Medicine; Visit Provider Psychiatry & Neurology Psychiatry
DX: Z79.899 Other long term (current) drug therapy (principal)
CPT/HCPCS: 80061; 83036; 85025

== ENCOUNTER → 2025-03-20 13:00 | Outpatient (BNVA) | payer SELFPAY ==
[2025-03-07 14:41] VITALS: BP 129/78; BMI 33.7
== END ==
PROVIDERS: PCP Family Medicine
DX: Z79.899 Other long term (current) drug therapy (principal)
CPT/HCPCS: 80053; 80061; 83036; 84443; 85007; 85027

== ENCOUNTER 2025-04-02 22:34 | Emergency (ER) | payer MEDICAID, SELFPAY ==
[2025-03-07 14:41] VITALS: BP 129/78; BMI 33.7
[2025-04-02 22:39] VITALS: BP 115/76; PULSE 84; RESP 16; TEMP 36.5; O2SAT 97; BMI 33.5
--- NOTE | 2025-04-02 22:50 | ECG_ITS ---
[facility] Test Date: 2025-04-02 Pat Name: Kevin Wade Department: Room: Gender: Male Field Instructor: : 1995 Requested By: Tianna Angel Order Number: [id number] Reading MD: Measurements Intervals Gary Rate: 77 P: 51 GA: 154 QRS: 48 QRSD: 83 T: 53 QT: 355 QTc: 404 Interpretive Statements SINUS RHYTHM [email or web address]
--- NOTE | 2025-04-02 22:50 | XRR_ITS ---
PROCEDURE INFORMATION: Exam: XR Chest Exam date and time: 04/02/2025 10:59 PM Age: 29 years old Clinical indication: Pain; Left-sided TECHNIQUE: Imaging protocol: Radiologic exam of the chest. Views: 1 view. COMPARISON: CT thoracic spin wo con* [id number] 04/02/2025 10:57 PM FINDINGS: Lungs: Minimal discoid atelectasis in the left lung base. Otherwise, the lungs are clear. Pleural spaces: Unremarkable. No pleural effusion. No pneumothorax. Heart/Mediastinum: Unremarkable. No cardiomegaly. Bones/joints: Unremarkable. XR/XR chest 1V portable [id number] IMPRESSION: Minimal discoid atelectasis left lung base.
--- NOTE | 2025-04-02 22:50 | CTR_ITS ---
PROCEDURE INFORMATION: Exam: CT Thoracic Spine Without Contrast Exam date and time: 04/02/2025 10:57 PM Age: 29 years old Clinical indication: Pain in thoracic spine TECHNIQUE: Imaging protocol: Computed tomography of the thoracic spine without contrast. Radiation optimization: All CT scans at this facility use at least one of these dose optimization techniques: automated exposure control; mA and/or kV adjustment per patient size (includes targeted exams where dose is matched to clinical indication); or iterative reconstruction. COMPARISON: No relevant prior studies available. RADIATION DOSE METRICS: Total DLP (mGy-cm): 1043.9 FINDINGS: Bones/joints: No acute fracture. Normal alignment. No significant disc bulge or herniation. No severe spinal canal stenosis. No significant neural foraminal narrowing. Soft tissues: Unremarkable. Lungs: Mosaic attenuation of the bilateral lower lobes. Pleural spaces: Trace bilateral pleural effusions. Other findings: Small hiatal hernia. Suspected splenomegaly. CT/CT thoracic spin wo con* [id number] IMPRESSION: 1. No acute abnormality involving the thoracic spine. 2. Mosaic attenuation involving the bilateral lower lobes with trace pleural effusions. These findings may reflect mild edema, air trapping or pneumonitis.
--- NOTE | 2025-04-02 22:51 | W.ED.BACK ---
HPI - Back Pain/Injury General: Chief Complaint: Back Pain/Injury Stated Complaint: Upper Back Pain Left Side Time Seen by Provider: 04/02/25 22:36 History of Present Illness: 29 yo male patient presents to ER with c/o upper back pain. Pt states he was walking and had pain when taking a step. Pt states after the back pain started it shot through to his chest but resolved. Pt denies any abd pain, history of drinking alcohol, n/v. Pt denies any fever. Pt denies any trauma or injury. Related Data Previous Rx's ?Medication ?Instructions ?Recorded omega-3 fatty acids 1,000 mg 1,000 mg PO DAILY 30 days #30 caps 09/01/21 capsule (Fish Oil Concentrate) cholecalciferol (vitamin D3) 1,250 1,250 mcg PO .weekly 90 days #13 01/10/22 mcg (50,000 unit) capsule (D3-50 caps Cholecalciferol) clozapine 200 mg tablet 200 mg PO .qhs 30 days #30 tabs 02/25/25 cetirizine 10 mg tablet (Zyrtec) 10 mg PO DAILY 90 days #90 tabs 03/05/25 meloxicam 15 mg tablet 15 mg PO DAILY PRN pain 90 days 03/05/25 #90 tabs metoprolol tartrate 100 mg tablet 100 mg PO BID 90 days #180 tabs 03/05/25 omeprazole 20 mg capsule,delayed 20 mg PO DAILY 90 days #90 caps 03/05/25 release aripiprazole 30 mg tablet (Abilify) 30 mg PO DAILY #30 tabs 03/20/25 fluoxetine 40 mg capsule 80 mg (2 x 40 mg) PO DAILY #60 caps 03/20/25 prazosin 2 mg capsule 2 mg PO BEDTIME #30 caps 03/20/25 tizanidine 4 mg capsule 4 mg PO Q8H #14 caps 04/03/25 Allergies Allergy/AdvReac Type Severity Reaction Status Date / Time divalproex sodium (From AdvReac Mild caused Verified 04/02/25 22:43 Depakote) patient to become violent gabapentin AdvReac Mild tremors Verified 04/02/25 22:43 Review of Systems General: Reports: 10 or more systems reviewed and unremarkable except in HPI and below PFSH ED PFSH: Medical History Medication noncompliance due to cognitive impairment Social anxiety disorder Generalized anxiety disorder Psychiatric care GERD (gastroesophageal reflux disease) Hypertension Schizoaffective disorder, depressive type Family History Other CAD (coronary artery disease) Myocardial infarction Social History Smoking and tobacco/nicotine status: never used tobacco/nicotine Alcohol intake: never Substance/Drug Use: never Adopted: No Caregiver/support person: No Lives independently: Yes Housing: Apartment Marital status: Single Highest education level completed: High School Graduate service: No Current occupational status: unemployed Current occupational exposures/hazards: No Leisure activites: other Leisure activities details: play video games Sexually active: No Do you think of yourself as: Straight/Heterosexual Current gender identity: Male Cecilia/Methodist: None Special cecilia needs: No Agree to transfusion: Yes Physical Exam Const: COMMON NORMALS: no acute distress, average body habitus and patient oriented x3 Chest: COMMONS NORMALS: normal inspection of the chest and normal palpation of entire chest wall Resp: COMMON NORMALS: normal respiratory effort, No retractions, No use of accessory muscles and clear to auscultation bilaterally AUSCULTATION: clear to auscultation bilaterally Cardio: COMMON NORMALS: regular rate and regular rhythm RATE: regular rate RHYTHM: regular rhythm GI: COMMON NORMALS: Normal to inspection, nondistended, normoactive bowel sounds present, Soft to palpation and non-tender PALPATION: Yes Soft to palpation Back/Pelvis: THORACIC SPINE/UPPER BACK: Yes normal to inspection, Yes thoracic ROM normal, Yes thoracic spinal tenderness and Yes paraspinal muscle tenderness Extremity: GENERAL: Yes normal exam except as noted Neuro: COMMON NORMALS: patient oriented x3 Psych: COMMON NORMALS: mental status grossly normal, Normal thought process present, cooperative, normal affect, speech normal and activity/motor behavior normal SPEECH: Yes normal speech THOUGHT PROCESS: Normal thought process present Skin: COMMON NORMALS: no rashes or lesions noted GENERAL SKIN EXAM: no rashes or lesions noted Course Vital Signs: Vital signs: Vital Signs Temperature 97.7 F 04/02/25 22:39 Pulse Rate 84 04/02/25 22:39 Respiratory Rate 16 04/02/25 22:39 Blood Pressure 115/76 04/02/25 22:39 Pulse Oximetry 97 04/02/25 22:39 Oxygen Delivery Me thod Room Air 04/02/25 22:39 MDM - Back Pain/Injury Medical Decision Making Patient is well appearing non toxic and in no acute distress. 29 yo male patient presents to ER with c/o upper back pain. Pt states he was walking and had pain when taking a step. Pt states after the back pain started it shot through to his chest but resolved. Pt denies any abd pain, history of drinking alcohol, n/v. Pt denies any fever. Pt denies any trauma or injury. I collins obtain an EKG given patients brief episode of a sharp pain in chest after back pain. Will obtain CT thoracic spine. CT tspine does not reveal any acute traumatic findings. Pt was given Toradol IM and has had clinical improvement of pain. Pt states he feels better and is requesting to go home at this time. I have advised patient of return precautions, home care and follow up Pt verbalizes understanding. Labs Radiology Impressions Chest X-Ray 04/02/25 22:50 IMPRESSION: Minimal discoid atelectasis left lung base. Thoracic Spine CT 04/02/25 22:50 IMPRESSION: 1. No acute abnormality involving the thoracic spine. 2. Mosaic attenuation involving the bilateral lower lobes with trace pleural effusions. These findings may reflect mild edema, air trapping or pneumonitis. All radiology interpretation(s) finalized by discharge Discharge Plan Discharge Patient Disposition: Home Clinical Impression: Thoracic back pain Condition: Stable Prescriptions: New tizanidine 4 mg capsule 4 mg PO Q8H Qty: 14 0RF No Action omega-3 fatty acids [Fish Oil Concentrate] 1,000 mg capsule 1,000 mg PO DAILY 30 Days Qty: 30 5RF Rx Instructions: with food cholecalciferol (vitamin D3) [D3-50 Cholecalciferol] 1,250 mcg (50,000 unit) capsule 1,250 mcg PO .weekly 90 Days Qty: 13 1RF cetirizine [Zyrtec] 10 mg tablet 10 mg PO DAILY 90 Days Qty: 90 2RF Rx Instructions: 340B meloxicam 15 mg tablet 15 mg PO DAILY PRN (Reason: pain) 90 Days Qty: 90 2RF Rx Instructions: WITH FOOD metoprolol tartrate 100 mg tablet 100 mg PO BID 90 Days Qty: 180 2RF omeprazole 20 mg capsule,delayed release(DR/EC) 20 mg PO DAILY 90 Days Qty: 90 2RF prazosin 2 mg capsule 2 mg PO BEDTIME Qty: 30 3RF aripiprazole [Abilify] 30 mg tablet 30 mg PO DAILY Qty: 30 3RF fluoxetine 40 mg capsule 80 mg PO DAILY Qty: 60 3RF clozapine 200 mg tablet 200 mg PO .qhs 30 Days Qty: 30 3RF Discharge Orders: Discharge ED (Routine); Ordered 04/03/25 Ordered By: Tianna Angel Referrals: Blanca Armendariz MD [Primary Care Provider, [facility]] Discharge Diet: Advance as tolerated Discharge Activity: Increase activity as tolerated Patient Instructions: Opioid Safety, Pain Management, Back Pain (ED) Activity Restrictions/Additional Instructions: Take meds as prescribed Please do not drink alcohol, drive or operate heavy machinery while take meds prescribed today. Return to ER if You have pain, numbness, or weakness in one or both legs. You have severe back pain, nausea, and vomiting. You have severe back pain that spreads to your side or genital area. Follow up with PCP as needed Print Language: Luxembourger Coding Level of Care Code ED Cloth Colors Examiner for Marlin Mena
[2025-04-02] MEDS: ketorolac 30 mg/mL INJ 15 MG IVP (23:20)
[2025-04-03 00:36] VITALS: BP 105/72; PULSE 77; RESP 17; O2SAT 97
== END 2025-04-03 00:37 | disposition home or self-care (01) ==
PROVIDERS: Emergency Provider Registered Nurse; PCP Family Medicine
DX: M54.6 Pain in thoracic spine (principal); I10 Essential (primary) hypertension; Z79.899 Other long term (current) drug therapy
CPT/HCPCS: 71045; 72128; 93005; 96374; 99284; J1885

== ENCOUNTER → 2025-05-03 14:58 | Outpatient (BNVA) | payer OTHER, SELFPAY ==
[2025-03-07 14:41] VITALS: BP 129/78; BMI 33.7
== END ==
PROVIDERS: PCP Family Medicine
DX: Z79.899 Other long term (current) drug therapy (principal)
CPT/HCPCS: 85025

== ENCOUNTER → 2025-06-06 15:02 | Outpatient (BNVA) | payer SELFPAY ==
[2025-03-07 14:41] VITALS: BP 129/78; BMI 33.7
== END ==
PROVIDERS: PCP Family Medicine
DX: F25.1 Schizoaffective disorder, depressive type (principal)
CPT/HCPCS: 85025

== ENCOUNTER → 2025-07-12 10:17 | Outpatient (BNVA) | payer OTHER, SELFPAY ==
[2025-03-07 14:41] VITALS: BP 129/78; BMI 33.7
== END ==
PROVIDERS: PCP Family Medicine
DX: F25.1 Schizoaffective disorder, depressive type (principal)
CPT/HCPCS: 85025

== ENCOUNTER → 2025-08-09 09:54 | Outpatient (BNVA) | payer OTHER, SELFPAY ==
[2025-03-07 14:41] VITALS: BP 129/78; BMI 33.7
== END ==
PROVIDERS: PCP Family Medicine
DX: F25.1 Schizoaffective disorder, depressive type (principal)
CPT/HCPCS: 85025

== ENCOUNTER → 2025-09-04 09:55 | Outpatient (BNVA) | payer OTHER, SELFPAY ==
[2025-03-07 14:41] VITALS: BP 129/78; BMI 33.7
== END ==
PROVIDERS: PCP Family Medicine
DX: Z79.899 Other long term (current) drug therapy (principal)
CPT/HCPCS: 85007; 85027

== ENCOUNTER → 2025-09-28 10:17 | Outpatient (BNVA) | payer OTHER, SELFPAY ==
[2025-03-07 14:41] VITALS: BP 129/78; BMI 33.7
== END ==
PROVIDERS: PCP Family Medicine
DX: Z79.899 Other long term (current) drug therapy (principal)
CPT/HCPCS: 85007; 85027

== ENCOUNTER → 2025-11-06 11:10 | Outpatient (BNVA) | payer OTHER, SELFPAY ==
[2025-03-07 14:41] VITALS: BP 129/78; BMI 33.7
== END ==
PROVIDERS: PCP Family Medicine
DX: I10 Essential (primary) hypertension (principal); F25.1 Schizoaffective disorder, depressive type
CPT/HCPCS: 80048; 85025